=== PATIENT | female | born 2000 | race Caucasian/White ===

== ENCOUNTER → 2019-11-13 14:01 | Outpatient (CLI) | payer BC ==
--- NOTE | 2019-11-15 08:18 | EC ---
PATIENT:CELSO MOODY DATE OF SERVICE: 11/13/19 SEX: F MEDICAL RECORD: [id number] DATE OF : [birth year] LOCATION:D[facility] AGE OF PATIENT: 19 ADMISSION DATE: 11/13/19 REFERRING PHYSICIAN: INTERPRETING PHYSICIAN: JIM KIM MD ECHOCARDIOGRAM REPORT ECHO CHARGES 4 ECHO COMPLETE Date: 11/13/19 CLINICAL DIAGNOSIS: HEART MURMUR/PALPITATIONS ECHOCARDIOGRAPHIC MEASUREMENTS (adult normal given) AC root (d.<3.7cm) 3.2 cm LV Septum d (<1.2 cm> 1.2 cm Valve Excursion 1.9 cm LV Septum (systole) 1.3 cm Left Atria (s.<4.0cm> 4.1 cm LVPW d(<1.2cm) 1.1 cm RV (d.<2.3cm) 2.8 cm LVPW (sytole) 1.4 cm LV diastole(<5.6CM) 4.8 cm MV E-F(>70mm/sec) cm LV systole 3.5 cm LVOT Diameter 1.9 cm MV exc.(>10mm) 1.9 cm Est.ejection fraction (50-75%) % DOPPLER: LVIT cm/sec A 43.0 cm/sec E 68.0 cm/sec LA cm/sec RVSP 31 mmHg LVOT 94 cm/sec AOP1/2T m/s Asc. Ao 132 cm/sec RVOT 59 cm/sec RA cm/sec PA 95 cm/sec AV Gradient Peak 6.95 mmHg AV Mean 3.48 mmHg AV Area 2.2 cm MV Gradient Peak 3.80 mmHg MV Mean 1.34 mmHg MV Area cm COMMENTS: All Source Intelligence Analyst: 2 VAL LYNCH Acid Recovery Operator: 3 Dr. Anthony TAPE# PACS Pericardial Effusion N DATE OF SERVICE: PROCEDURE: Treadmill stress test. Baseline ECG shows frequent PVCs including couplets and a right bundle branch pattern. Exercised for 10 minutes on Albaro protocol with suppression of some of the PVCs with exercise. No ECG changes for ischemia. Normal blood pressure response to exercise. No anginal symptomology. TRANSINT:[id number] Voice Confirmation ID: [id number] DOCUMENT ID: [id number] ECHOCARDIOGRAM REPORT [id number] HEIDYCELSO JIM KIM MD at 0818 CC: [id number] DICTATION DATE: 11/14/19 1255 INDUSTRIAL TECH INSTRUCTOR: 11/14/192039 DEP CLI 11/13/19 [id number] [place] [address]
--- NOTE | 2019-11-15 08:18 | EC ---
PATIENT:CELSO MOODY DATE OF SERVICE: 11/13/19 SEX: F MEDICAL RECORD: [id number] DATE OF : [birth year] LOCATION:D[facility] AGE OF PATIENT: 19 ADMISSION DATE: 11/13/19 REFERRING PHYSICIAN: INTERPRETING PHYSICIAN: JIM KIM MD ECHOCARDIOGRAM REPORT ECHO CHARGES 4 ECHO COMPLETE Date: 11/13/19 CLINICAL DIAGNOSIS: HEART MURMUR/PALPITATIONS ECHOCARDIOGRAPHIC MEASUREMENTS (adult normal given) AC root (d.<3.7cm) 3.2 cm LV Septum d (<1.2 cm> 1.2 cm Valve Excursion 1.9 cm LV Septum (systole) 1.3 cm Left Atria (s.<4.0cm> 4.1 cm LVPW d(<1.2cm) 1.1 cm RV (d.<2.3cm) 2.8 cm LVPW (sytole) 1.4 cm LV diastole(<5.6CM) 4.8 cm MV E-F(>70mm/sec) cm LV systole 3.5 cm LVOT Diameter 1.9 cm MV exc.(>10mm) 1.9 cm Est.ejection fraction (50-75%) % DOPPLER: LVIT cm/sec A 43.0 cm/sec E 68.0 cm/sec LA cm/sec RVSP 31 mmHg LVOT 94 cm/sec AOP1/2T m/s Asc. Ao 132 cm/sec RVOT 59 cm/sec RA cm/sec PA 95 cm/sec AV Gradient Peak 6.95 mmHg AV Mean 3.48 mmHg AV Area 2.2 cm MV Gradient Peak 3.80 mmHg MV Mean 1.34 mmHg MV Area cm COMMENTS: Maintenance Technician: 2 VAL LYNCH Scene Shifter: 3 Dr. Anthony TAPE# PACS Pericardial Effusion N DATE OF SERVICE: Adequate 2D echo, color flow, spectral Doppler, and M-Mode. No LVH. LV internal dimension is normal. Wall motion is normal. EF is greater than or equal to 55%. Aortic valve is tricuspid. No evidence of stenosis by Doppler interrogation. Left atrium is normal. Mitral valve shows no prolapse. Trace MR. Right-sided chambers are grossly normal. Mild TR. TRANSINT:[id number] Voice Confirmation ID: [id number] DOCUMENT ID: [id number] ECHOCARDIOGRAM REPORT [id number] CELSO MOODY,JIM Luo MD at 0818 CC: [id number] DICTATION DATE: 11/14/19 1249 MAIL EXAMINER: 11/14/192027 DEP CLI 11/13/19 [facility] [address] [place] [address]
== END | disposition home or self-care (01) ==
LOC: D.HCCECHO 14:01
PROVIDERS: ATTEND Internal Medicine Interventional Cardiology
DX: R00.2 Palpitations (principal)